=== PATIENT | male | born 1965 ===

== ENCOUNTER 2016-07-11 02:22 | Observation (INO) | payer SELFPAY ==
[2016-07-11 02:27] VITALS: BMI 25.1
[2016-07-11] MEDS ORDERED: Sodium Chloride 0.9% 1,000 ML IV STA (02:36)
--- NOTE | 2016-07-11 02:36 | ED PDOC ---
Arrival/HPI - General Chief Complaint: Alcohol Ingestion Time Seen by Provider: 07/11/16 02:23 Historian: Patient, EMS - History of Present Illness Narrative History of Present Illness (Text): 07/11/16 02:30 Jeff Lozano is a 51 year old male, whose past medical history includes perforated colon, who presents to the emergency department complaining of vomiting. Patient states he has been experiencing nausea with associated abdominal discomfort and few episodes of vomiting which he states was possibly blood-tinged. Patient admits to drinking a few beers tonight. The patient denies any fever, chills, chest pain, shortness of breath, diarrhea, urinary symptoms, back pain, neck pain, headache, dizziness, or any other complaints. Time/Duration: Other (tonight) Symptom Onset: Gradual Symptom Course: Unchanged Severity Level: Mild Activities at Onset: Light Past Medical History - Provider Review Nursing Documentation Reviewed: Yes - Infectious Disease Hx of Infectious Diseases: None - Cardiac Hx Hypertension: No - Pulmonary Hx Tuberculosis: No - Neurological Hx Seizures: No - Hematological/Oncological Hx Cancer: No - Gastrointestinal Hx Gastrointestinal Disorders: Yes (SEE BELOW) Other/Comment: PERFORATED COLON W/REVERSED COLOSTOMY (TRAUMATIC, PER PT ''GLASS PLACED INTO HIS FOOD WHILE IN [facility]'') - Genitourinary/Gynecological Hx Sexually Transmitted Diseases: No - Psychiatric Hx Post Traumatic Stress Disorder: Yes (DUE TO INCARCERATION(33YRS)) Hx Substance Use: No (Denied) - Surgical History Other/Comment: 2006=PERFORATED COLON W/REVERSED COLOSTOMY (TRAUMATIC, PER PT '' GLASS PLACED INTO HIS FOOD WHILE IN [facility]'') - Anesthesia Hx Anesthesia: Yes Hx Anesthesia Reactions: No Family/Social History - Physician Review Nursing Documentation Reviewed: Yes Family/Social History: No Known Family HX Smoking Status: Former Smoker Hx Alcohol Use: No Hx Substance Use: No (Denied) Allergies/Home Meds Allergies/Adverse Reactions: Allergies amitriptyline HCl [From Elavil] Allergy (Verified 03/28/16 22:51) RASH divalproex sodium [From Depakote] Allergy (Verified 03/28/16 22:51) VOMITING Home Medications: Home Meds Medication Instructions Recorded Confirmed Unobtainable 07/11/16 07/11/16 Review of Systems - Physician Review All systems were reviewed & negative as marked: Yes - Review of Systems Constitutional: Normal. absent: Fevers Eyes: Normal ENT: Normal Respiratory: Normal. absent: SOB, Cough Cardiovascular: Normal. absent: Chest Pain Gastrointestinal: Abdominal Pain, Nausea, Vomiting Genitourinary Male: Normal. absent: Dysuria, Frequency, Hematuria, Urinary Output Changes Musculoskeletal: Normal. absent: Back Pain, Neck Pain Skin: Normal. absent: Rash Neurological: Normal. absent: Headache, Dizziness Endocrine: Normal Hemo/Lymphatic: Normal Psychiatric: Other (+alcohol intoxication) Physical Exam Vital Signs Reviewed: Yes Vital Signs Temp Pulse Resp BP Pulse Ox 07/11/16 05:46 93 H 17 112/75 98 07/11/16 02:22 97.6 F 77 19 139/73 98 Temperature: Afebrile Blood Pressure: Normal Pulse: Regular Respiratory Rate: Normal Appearance: Positive for: Well-Appearing, Comfortable Pain Distress: None Mental Status: Positive for: Alert and Oriented X 3 - Systems Exam Head: Present: Atraumatic, Normocephalic Pupils: Present: PERRL Extroacular Muscles: Present: EOMI Conjunctiva: Present: Normal Mouth: Present: Moist Mucous Membranes Neck: Present: Normal Range of Motion Respiratory/Chest: Present: Clear to Auscultation, Good Air Exchange. No: Respiratory Distress, Accessory Muscle Use Cardiovascular: Present: Regular Rate and Rhythm, Normal S1, S2. No: Murmurs Abdomen: Present: Normal Bowel Sounds. No: Tenderness, Distention, Peritoneal Signs Back: Present: Normal Inspection Upper Extremity: Present: Normal Inspection. No: Cyanosis, Edema Lower Extremity: Present: Normal Inspection. No: Edema Neurological: Present: GCS=15, CN II-XII Intact, Speech Normal Skin: Present: Warm, Dry, Normal Color. No: Rashes Psychiatric: Present: Alert, Oriented x 3, Normal Insight, Normal Concentration Medical Decision Making ED Course and Treatment: 07/11/16 02:30 Impression: 51 year old male complaining of nausea, vomiting, and abdominal discomfort tonight. Plan: -- Labs, alcohol level, lipase -- IV fluids -- Zofran -- Pepcid -- Reassess and disposition Progress Notes: 07/11/16 05:40 Pt now complaining of chest discomfort. EKG, CXR, and cardiac enzymes. 07/11/16 06:12 Reviewed EKG, NSR at [address]-segment elevations or depressions, no T-wave inversions, normal intervals. 07/11/16 06:23 Case discussed with house physician, who is aware and accepts pt on hospitalist service. Pt will go to Telemetry observation for chest pain and hematemesis. 07/11/16 06:30 Reviewed radiology, CXR shows no acute process. - Lab Interpretations Lab Results: 07/11/16 03:00 07/11/16 03:00 Lab Results 07/11/16 03:00: WBC 10.2, RBC 4.03, Hgb 13.5 L, Hct 38.2 L, MCV 94.8, MCH 33.5, MCHC 35.3, RDW 13.5, Plt Count 266, MPV 8.8 07/11/16 03:00: Alcohol, Quantitative 12 H 07/11/16 03:00: Sodium 140, Potassium 3.5 L, Chloride 102, Carbon Dioxide 28, Anion Gap 14, BUN 18, Creatinine 0.7, Est GFR ( Amer) > 60, Est GFR (Non- Af Amer) > 60, Random Glucose 89, Calcium 9.0, Total Bilirubin 0.5, AST 34, ALT 36, Alkaline Phosphatase 68, Lactate Dehydrogenase 501, Total Creatine Kinase 222, Troponin I < 0.01, Total Protein 7.4, Albumin 4.1, Globulin 3.3, Albumin/ Globulin Ratio 1.2, Lipase 69 07/11/16 03:00: PT 11.3, INR 1.05, APTT 22.6 L 07/11/16 02:55: Urine Opiates Screen Negative, Urine Methadone Screen Negative, Ur Barbiturates Screen Negative, Ur Phencyclidine Scrn Negative, Ur Amphetamines Screen Negative, U Benzodiazepines Scrn Negative, U Oth Cocaine Metabols Negative, U Cannabinoids Screen Positive H I have reviewed the lab results: Yes - RAD Interpretation Radiology Orders: 07/11/16 05:48 CHEST PORTABLE [RAD] Stat Trolley Operator: ED Physician - EKG Interpretation Interpreted by ED Physician: Yes Type: 12 lead EKG - Medication Orders Current Medication Orders: Discontinued Medications Famotidine (Pepcid) 20 mg IVP STAT STA Stop: 07/11/16 02:37 Last Admin: 07/11/16 03:11 Dose: 20 mg Sodium Chloride (Sodium Chloride 0.9%) 1,000 mls @ 999 mls/hr IV .Q1H1M STA Stop: 07/11/16 03:36 Last Admin: 07/11/16 03:12 Dose: 999 mls/hr Ondansetron HCl (Zofran Inj) 4 mg IVP ONCE ONE Stop: 07/11/16 02:37 Last Admin: 07/11/16 03:12 Dose: 4 mg Pantoprazole Sodium (Protonix Inj) 40 mg IVP ONCE STA Stop: 07/11/16 06:20 - Scribe Statement The provider has reviewed the documentation as recorded by the Myrna White Provider Attestation: All medical record entries made by the Myrna were at my direction and personally dictated by me. I have reviewed the chart and agree that the record accurately reflects my personal performance of the history, physical exam, medical decision making, and the department course for this patient. I have also personally directed, reviewed, and agree with the discharge instructions and disposition. Disposition/Present on Arrival - Present on Arrival Any Indicators Present on Arrival: No History of DVT/PE: No History of Uncontrolled Diabetes: No Urinary Catheter: No History of Decub. Ulcer: No History Surgical Site Infection Following: None - Disposition Have Diagnosis and Disposition been Completed?: Yes Diagnosis: Chest pain, Hematemesis Disposition: HOSPITALIZED Disposition Time: 06:25 Patient Plan: Observation Patient Problems: Current Active Problems Problem Status Onset Chest pain Acute Hematemesis Acute Condition: STABLE Discharge Instructions (ExitCare): Chest Pain (ED)
[2016-07-11 02:56] VITALS: O2SAT 98
[2016-07-11 03:22] LABS: HEMATOCRIT 38.2 % (42.0-52.0); MEAN CELL VOLUME 94.8 fL (80.0-105.0); MEAN CORPUSCULAR HEMOGLOBIN 33.5 pg (25.0-35.0); MEAN CORPUSCULAR HGB CONC 35.3 g/dl (31.0-37.0); MEAN PLATELET VOLUME 8.8 fl (7.0-11.0); RED CELL DISTRIBUTION WIDTH 13.5 % (11.5-14.5); WHITE BLOOD COUNT 10.2 10^3/ul (4.5-11.0)
[2016-07-11 03:32] LABS: ALB/GLOB RATIO 1.2 (1.1-1.8); ALKALINE PHOSPHATASE 68 U/L (38-133); ALT/SGPT 36 U/L (7-56); AST/SGOT 34 U/L (15-59); BILIRUBIN,TOTAL 0.5 mg/dL (0.2-1.3); BLOOD UREA NITROGEN 18 mg/dL (7-21); CARBON DIOXIDE 28 mmol/L (21-33); CHLORIDE 102 mmol/L (98-107); GFR AFRICAN-AMERICAN > 60; GLUCOSE,RANDOM 89 mg/dL (70-110); LIPASE 69 U/L (23-300); POTASSIUM 3.5 mmol/L (3.6-5.0); SODIUM 140 mmol/L (132-148); TOTAL PROTEIN 7.4 g/dL (5.8-8.3)
[2016-07-11 03:34] LABS: INR 1.05 (0.93-1.08); PARTIAL THROMBOPLASTIN TIME 22.6 Seconds (23.7-30.8)
[2016-07-11 06:15] LABS: TROPONIN I < 0.01 ng/mL
--- NOTE | 2016-07-11 07:12 | RAD ---
HISTORY: pain COMPARISON: No prior. FINDINGS: LUNGS: No active pulmonary disease. PLEURA: No significant pleural effusion identified, no pneumothorax apparent. CARDIOVASCULAR: Normal. OSSEOUS STRUCTURES: No significant abnormalities. VISUALIZED UPPER ABDOMEN: Normal. OTHER FINDINGS: None. IMPRESSION: No active disease.
[2016-07-11 07:53] VITALS: BP 122/87; PULSE 86; RESP 15; TEMP 98.9
[2016-07-11] MEDS ORDERED: Sodium Chloride 0.9% 500 ML IV SCH (08:28)
--- NOTE | 2016-07-11 09:05 | CP.PCM.CON ---
History of Present Illness - History of Present Illness History of Present Illness: PGY4 GI Fellow Consult Note Patient is a 51yo male with PMHx significant for colonic perforation requiring partial colectomy with ostomy and eventual reversal who presented to the ED with nausea and vomiting. Currently, the patient is very agitated and is refusing examination or to provide any history. He is getting dressed and states he is leaving against medical advice right now. According to the ED noted, patient was brought in for nausea and vomiting. He claimed to have one episode of coffee ground emesis but this was unwitnessed and he has not had any further episodes since admission. No other history can be obtained at this time. PMHx: See above PSHx: Partial colectomy, ostomy formation and reversal FHx: Unknown Social: EtOH use, +cannabis on UDS Endo: Unknown Past Patient History - Infectious Disease Hx of Infectious Diseases: None - Past Social History Smoking Status: Former Smoker - CARDIAC Hx Hypertension: No - PULMONARY Hx Tuberculosis: No - NEUROLOGICAL Hx Seizures: No - HEMATOLOGICAL/ONCOLOGICAL Hx Cancer: No - GASTROINTESTINAL Hx Gastrointestinal Disorders: Yes (SEE BELOW) Other/Comment: PERFORATED COLON W/REVERSED COLOSTOMY (TRAUMATIC, PER PT ''GLASS PLACED INTO HIS FOOD WHILE IN [facility]'') - GENITOURINARY/GYNECOLOGICAL Hx Sexually Transmitted Disorders: No - PSYCHIATRIC Hx Post Traumatic Stress Disorder: Yes (DUE TO INCARCERATION(32YRS)) Hx Substance Use: No (Denied) - SURGICAL HISTORY Other/Comment: 2006=PERFORATED COLON W/REVERSED COLOSTOMY (TRAUMATIC, PER PT '' GLASS PLACED INTO HIS FOOD WHILE IN [facility]'') - ANESTHESIA Hx Anesthesia: Yes Hx Anesthesia Reactions: No Meds Allergies/Adverse Reactions: Allergies Allergy/AdvReac Type Severity Reaction Status Date / Time amitriptyline HCl Allergy RASH Verified 03/28/16 22:51 [From Elavil] divalproex sodium Allergy VOMITING Verified 03/28/16 22:51 [From Depakote] - Medications Medications: Current Medications Folic Acid (Folic Acid) 1 mg PO DAILY UNIQUE Potassium Chloride (Potassium Chloride 20 Meq/100 Ml) 20 meq in 100 mls @ 50 mls/hr IVPB ONCE ONE Stop: 07/11/16 10:28 Sodium Chloride (Sodium Chloride 0.9%) 500 mls @ 150 mls/hr IV .Q3H20M UNIQUE Ondansetron HCl (Zofran Inj) 4 mg IVP Q6 PRN PRN Reason: Nausea/Vomiting Pantoprazole Sodium (Protonix Inj) 40 mg IVP Q12 UNIQUE Thiamine HCl (Vitamin B1 Tab) 50 mg PO DAILY UNIQUE Physical Exam - Constitutional Appears: Combative, Agitated - Additional Findings Additional findings: Patient agitated, will not allow examination Results - Vital Signs Recent Vital Signs: Last Vital Signs Temp 98.9 F 07/11/16 07:52 Pulse 86 07/11/16 07:52 Resp 15 07/11/16 07:52 BP 122/87 07/11/16 07:52 Pulse Ox 98 07/11/16 07:52 - Labs Result Diagrams: 07/11/16 03:00 07/11/16 03:00 Assessment & Plan - Assessment and Plan (Free Text) Assessment: Patient is a 51yo male with PMHx significant for colonic perforation requiring partial colectomy with ostomy and eventual reversal who presented to the ED with nausea and vomiting. -Nausea, vomiting; subjective coffee ground emesis - unwitnessed -EtOH abuse and acute EtOH intoxication -Cannabis use Plan: -Patient stating he wishes to leave AMA; will not provide history and will not allow physical examination -Currently hemodynamically stable with no distress at this time -Protonix 40mg IV BIDAC as ordered -Antiemetics to prevent retching/vomiting as ordered -Liquid diet as tolerated -Repeat CBC at noon, monitor HGB -HCV Ab screening -Encourage EtOH cessation -If patient stays, consider NPO past MN, EGD in AM -Would benefit from screening colonoscopy, can be performed as outpatient if patient wishes to follow up - Date & Time Date: 07/11/16 Time: 09:01
--- NOTE | 2016-07-11 14:54 | CARD ---
APPROVED REPORT EKG Measurement Heart [id number] [id number] <Conclusion> Normal sinus rhythm Normal ECG
--- NOTE | 2016-07-11 14:54 | CARD ---
APPROVED REPORT EKG Measurement Heart [id number] <Conclusion> Normal sinus rhythm Normal ECG
--- NOTE | 2016-07-11 17:04 | CP.PCM.HP ---
<Ida Coffey - Last Filed: 07/11/16 17:11> History of Present Illness - History of Present Illness History of Present Illness: 57 yo M with PMHx of perforated colon and possible ETOH abuse, presents to ED with complaint of diffuse chest pain, L sided abdominal pain, and an episode of red emesis. Pt is a poor and agitated historian who did not give further detail despite questioning. As per ED report, pt ingested ETOH the night prior , after which, he has his episode of emesis. Pt denies tarry stools. PMHx: ETOH abuse Sx: related to perforated colon medications: denies taking any medications allergies: amitriptyline, divalproex social: 2 cigarettes a day for unknown amount of years. Denies ETOH currently. Present on Admission - Present on Admission Any Indicators Present on Admission: No Review of Systems - Review of Systems Systems not reviewed;Unavailable: Uncooperative Past Patient History - Infectious Disease Hx of Infectious Diseases: None - Past Social History Smoking Status: Former Smoker - CARDIAC Hx Hypertension: No - PULMONARY Hx Tuberculosis: No - NEUROLOGICAL Hx Seizures: No - HEMATOLOGICAL/ONCOLOGICAL Hx Cancer: No - GASTROINTESTINAL Hx Gastrointestinal Disorders: Yes (SEE BELOW) Other/Comment: PERFORATED COLON W/REVERSED COLOSTOMY (TRAUMATIC, PER PT ''GLASS PLACED INTO HIS FOOD [facility] [facility]'') - GENITOURINARY/GYNECOLOGICAL Hx Sexually Transmitted Disorders: No - PSYCHIATRIC Hx Post Traumatic Stress Disorder: Yes (DUE TO INCARCERATION(32YRS)) Hx Substance Use: No (Denied) - SURGICAL HISTORY Other/Comment: 2006=PERFORATED COLON W/REVERSED COLOSTOMY (TRAUMATIC, PER PT '' GLASS PLACED INTO HIS FOOD WHILE IN [facility]'') - ANESTHESIA Hx Anesthesia: Yes Hx Anesthesia Reactions: No Meds Allergies/Adverse Reactions: Allergies Allergy/AdvReac Type Severity Reaction Status Date / Time amitriptyline HCl Allergy RASH Verified 03/28/16 22:51 [From Elavil] divalproex sodium Allergy VOMITING Verified 03/28/16 22:51 [From Depakote] Physical Exam - Constitutional Appears: Agitated - Head Exam Head Exam: ATRAUMATIC, NORMOCEPHALIC - Eye Exam Eye Exam: EOMI, Normal appearance - Respiratory Exam Respiratory Exam: Clear to Auscultation Bilateral, NORMAL BREATHING PATTERN - Cardiovascular Exam Cardiovascular Exam: +S1, +S2. absent: Bradycardia - GI/Abdominal Exam GI & Abdominal Exam: Soft. absent: Tenderness - Exam External exam: absent: Erythema, Swelling - Extremities Exam Extremities exam: Negative for: pedal edema, tenderness - Neurological Exam Neurological exam: Alert, Normal Gait - Psychiatric Exam Psychiatric exam: Agitated, Anxious - Skin Skin Exam: Normal Color, Warm Results - Vital Signs Recent Vital Signs: Last Vital Signs Temp 98.9 F 07/11/16 07:52 Pulse 86 07/11/16 07:52 Resp 15 07/11/16 07:52 BP 122/87 07/11/16 07:52 Pulse Ox 98 07/11/16 07:52 - Labs Result Diagrams: 07/11/16 03:00 07/11/16 03:00 Assessment & Plan - Assessment and Plan (Free Text) Plan: 51 yo M presents with c/o of hematemesis, chest pain and L sided abdominal pain. Admits to ETOH usage night prior. In telemetry for chest pain and hematemesis: chest Pain: EKG shows NSR at [address] elevations/depressions or evidence of LBBB troponin 0.01, serial troponins ordered cardiac consult Hematemesis: intial hemoglobin 13.5 GI consult hemoglobin monitoring q6 CLD IV NS 125cc.hr zofran Possible ETOH abuse ETOH level 12 thiamine, folic acid, multivitamin CIWA protocol ativan prn PPx measures heparin, protonix <Bowen BRUNSON,Lazaro - Last Filed: 07/11/16 17:27> Results - Vital Signs Recent Vital Signs: Last Vital Signs Temp 98.9 F 07/11/16 07:52 Pulse 86 07/11/16 07:52 Resp 15 07/11/16 07:52 BP 122/87 07/11/16 07:52 Pulse Ox 98 07/11/16 07:52 - Labs Result Diagrams: 07/11/16 03:00 07/11/16 03:00 Attending/Attestation - Attestation I have personally seen and examined this patient.: Yes I have fully participated in the care of the patient.: Yes I have reviewed all pertinent clinical information: Yes Notes (Text): Patient was seen and examined with center medical and lab director .Agreed with resident assessment and plan. 51 yrs old male with PMH of alcohol and drug abuse is admitted with history of chest pain and questionable history of GI bleeding.EKG is normal, initial troponins are normal.We will admit patient in telemetry, will start on IV hydration, PPI and will get serial troponin..We will get GI and cardiology evaluation. We will also watch for alcohol withdrawal. Management plan was discussed in detail with patient Education was provided.
--- NOTE | 2016-07-11 17:15 | CP.PCM.DIS ---
<Ida Coffey - Last Filed: 07/11/16 17:16> Provider - Provider Date of Admission: 07/11/16 06:19 Attending physician: Olivia Wright MD Primary care physician: erma Consults: Dr. Brannon and Dr. Arce Time Spent in preparation of Discharge (in minutes): 25 Hospital Course - Lab Results Lab Results: Most Recent Lab Values WBC 10.2 10^3/ul (4.5-11.0) 07/11/16 03:00 RBC 4.03 10^6/uL (3.5-6.1) 07/11/16 03:00 Hgb 13.5 gm/dL (14.0-18.0) L 07/11/16 03:00 Hct 38.2 % (42.0-52.0) L 07/11/16 03:00 MCV 94.8 fL (80.0-105.0) 07/11/16 03:00 MCH 33.5 pg (25.0-35.0) 07/11/16 03:00 MCHC 35.3 g/dl (31.0-37.0) 07/11/16 03:00 RDW 13.5 % (11.5-14.5) 07/11/16 03:00 Plt Count 266 10^3/uL (120.0-450.0) 07/11/16 03:00 MPV 8.8 fl (7.0-11.0) 07/11/16 03:00 PT 11.3 Seconds (9.9-11.8) 07/11/16 03:00 INR 1.05 (0.93-1.08) 07/11/16 03:00 APTT 22.6 Seconds (23.7-30.8) L 07/11/16 03:00 Sodium 140 mmol/L (132-148) 07/11/16 03:00 Potassium 3.5 mmol/L (3.6-5.0) L 07/11/16 03:00 Chloride 102 mmol/L (98-107) 07/11/16 03:00 Carbon Dioxide 28 mmol/L (21-33) 07/11/16 03:00 Anion Gap 14 (10-20) 07/11/16 03:00 BUN 18 mg/dL (7-21) 07/11/16 03:00 Creatinine 0.7 mg/dL (0.5-1.4) 07/11/16 03:00 Est GFR ( Amer) > 60 07/11/16 03:00 Est GFR (Non-Af Amer) > 60 07/11/16 03:00 Random Glucose 89 mg/dL (70-110) 07/11/16 03:00 Calcium 9.0 mg/dL (8.4-10.5) 07/11/16 03:00 Total Bilirubin 0.5 mg/dL (0.2-1.3) 07/11/16 03:00 AST 34 U/L (15-59) 07/11/16 03:00 ALT 36 U/L (7-56) 07/11/16 03:00 Alkaline Phosphatase 68 U/L (38-133) 07/11/16 03:00 Lactate Dehydrogenase 501 U/L (333-699) 07/11/16 03:00 Total Creatine Kinase 222 U/L (35-230) 07/11/16 03:00 Troponin I < 0.01 ng/mL 07/11/16 03:00 Total Protein 7.4 g/dL (5.8-8.3) 07/11/16 03:00 Albumin 4.1 g/dL (3.0-4.8) 07/11/16 03:00 Globulin 3.3 gm/dL 07/11/16 03:00 Albumin/Globulin Ratio 1.2 (1.1-1.8) 07/11/16 03:00 Lipase 69 U/L (23-300) 07/11/16 03:00 Urine Opiates Screen Negative (NEGATIVE) 07/11/16 02:55 Urine Methadone Screen Negative (NEGATIVE) 07/11/16 02:55 Ur Barbiturates Screen Negative (NEGATIVE) 07/11/16 02:55 Ur Phencyclidine Scrn Negative (NEGATIVE) 07/11/16 02:55 Ur Amphetamines Screen Negative (NEGATIVE) 07/11/16 02:55 U Benzodiazepines Scrn Negative (NEGATIVE) 07/11/16 02:55 U Oth Cocaine Metabols Negative (NEGATIVE) 07/11/16 02:55 U Cannabinoids Screen Positive (NEGATIVE) H 07/11/16 02:55 Alcohol, Quantitative 12 mg/dL (0-10) H 07/11/16 03:00 - Hospital Course Hospital Course: 51 yo M presents with c/o of hematemesis, chest pain and L sided abdominal pain. Admits to ETOH usage night prior. Recieved bolus of NS, protonix, zofran in ED. EKG shows NSR at [address] elevations/depressions or evidence of LBBB, and initial troponin is negative. In telemetry for chest pain and hematemesis: Below was the proposed plan for care, but pt left AMA, despite being told the risks of leaving and benefits of staying: chest Pain: serial troponins ordered cardiac consult Hematemesis: intial hemoglobin 13.5 GI consult hemoglobin monitoring q6 CLD IV NS 125cc.hr zofran Possible ETOH abuse ETOH level 12 thiamine, folic acid, multivitamin CIWA protocol ativan prn PPx measures heparin, protonix Discharge Exam - Head Exam Head Exam: ATRAUMATIC, NORMOCEPHALIC - Additional Findings Additional findings: please refer to HPI Discharge Plan - Follow Up Plan Condition: UNKNOWN Disposition: AGAINST MEDICAL ADVICE Instructions: Chest Pain (DC), Chest Pain (GEN) <Bowen BRUNSON,[facility] - Last Filed: 07/11/16 17:30> Provider - Provider Date of Admission: 07/11/16 06:19 Attending physician: Olivia Wright MD Hospital Course - Lab Results Lab Results: Most Recent Lab Values WBC 10.2 10^3/ul (4.5-11.0) 07/11/16 03:00 RBC 4.03 10^6/uL (3.5-6.1) 07/11/16 03:00 Hgb 13.5 gm/dL (14.0-18.0) L 07/11/16 03:00 Hct 38.2 % (42.0-52.0) L 07/11/16 03:00 MCV 94.8 fL (80.0-105.0) 07/11/16 03:00 MCH 33.5 pg (25.0-35.0) 07/11/16 03:00 MCHC 35.3 g/dl (31.0-37.0) 07/11/16 03:00 RDW 13.5 % (11.5-14.5) 07/11/16 03:00 Plt Count 266 10^3/uL (120.0-450.0) 07/11/16 03:00 MPV 8.8 fl (7.0-11.0) 07/11/16 03:00 PT 11.3 Seconds (9.9-11.8) 07/11/16 03:00 INR 1.05 (0.93-1.08) 07/11/16 03:00 APTT 22.6 Seconds (23.7-30.8) L 07/11/16 03:00 Sodium 140 mmol/L (132-148) 07/11/16 03:00 Potassium 3.5 mmol/L (3.6-5.0) L 07/11/16 03:00 Chloride 102 mmol/L (98-107) 07/11/16 03:00 Carbon Dioxide 28 mmol/L (21-33) 07/11/16 03:00 Anion Gap 14 (10-20) 07/11/16 03:00 BUN 18 mg/dL (7-21) 07/11/16 03:00 Creatinine 0.7 mg/dL (0.5-1.4) 07/11/16 03:00 Est GFR ( Amer) > 60 07/11/16 03:00 Est GFR (Non-Af Amer) > 60 07/11/16 03:00 Random Glucose 89 mg/dL (70-110) 07/11/16 03:00 Calcium 9.0 mg/dL (8.4-10.5) 07/11/16 03:00 Total Bilirubin 0.5 mg/dL (0.2-1.3) 07/11/16 03:00 AST 34 U/L (15-59) 07/11/16 03:00 ALT 36 U/L (7-56) 07/11/16 03:00 Alkaline Phosphatase 68 U/L (38-133) 07/11/16 03:00 Lactate Dehydrogenase 501 U/L (333-699) 07/11/16 03:00 Total Creatine Kinase 222 U/L (35-230) 07/11/16 03:00 Troponin I < 0.01 ng/mL 07/11/16 03:00 Total Protein 7.4 g/dL (5.8-8.3) 07/11/16 03:00 Albumin 4.1 g/dL (3.0-4.8) 07/11/16 03:00 Globulin 3.3 gm/dL 07/11/16 03:00 Albumin/Globulin Ratio 1.2 (1.1-1.8) 07/11/16 03:00 Lipase 69 U/L (23-300) 07/11/16 03:00 Urine Opiates Screen Negative (NEGATIVE) 07/11/16 02:55 Urine Methadone Screen Negative (NEGATIVE) 07/11/16 02:55 Ur Barbiturates Screen Negative (NEGATIVE) 07/11/16 02:55 Ur Phencyclidine Scrn Negative (NEGATIVE) 07/11/16 02:55 Ur Amphetamines Screen Negative (NEGATIVE) 07/11/16 02:55 U Benzodiazepines Scrn Negative (NEGATIVE) 07/11/16 02:55 U Oth Cocaine Metabols Negative (NEGATIVE) 07/11/16 02:55 U Cannabinoids Screen Positive (NEGATIVE) H 07/11/16 02:55 Alcohol, Quantitative 12 mg/dL (0-10) H 07/11/16 03:00 Attending/Attestation - Attestation I have personally seen and examined this patient.: Yes I have fully participated in the care of the patient.: Yes I have reviewed all pertinent clinical information, including history, physical exam and plan: Yes Notes (Text): 07/11/16 17:28 51 yrs old male with history of alcohol and drug abuse was admitted with atypical chest pain and questionable hemetemsis, decided to leave hospital against medical advice.He was alert,awake and oriented and understood the risk of leaving the hospital against medical advise.The need of stay in the hospital was discussed in detail with him but he did not agree and left the hospital AMA.
== END 2016-07-11 09:50 | disposition left against medical advice (07) ==
LOC: ED 02:22 → ERH 06:19 → 2RNO 08:51
PROVIDERS: ADMIT Internal Medicine; ATTEND Internal Medicine
DX: K92.0 Hematemesis (principal); R07.89 Other chest pain; F10.129 Alcohol abuse with intoxication, unspecified; Y90.0 Blood alcohol level of less than 20 mg/100 ml; R10.9 Unspecified abdominal pain; F17.210 Nicotine dependence, cigarettes, uncomplicated; F12.10 Cannabis abuse, uncomplicated
CPT/HCPCS: 71010; 80053; 82550; 83615; 83690; 84484; 85027; 85610; 85730; 93005; 96361; 96374; 96375; 99285; C9113; G0378; G0480; J2405; J7040

== ENCOUNTER 2017-03-07 02:47 | Emergency (ER) | payer OTHER ==
[2017-03-07 02:47] VITALS: BMI 25.1
[2017-03-07 03:32] VITALS: TEMP 97.7
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
[2017-03-07 06:47] VITALS: BP 122/70; PULSE 72; RESP 12; O2SAT 100
== END 2017-03-07 07:25 | disposition home or self-care (01) ==
LOC: ED 02:47
DX: S22.42XA Multiple fractures of ribs, left side, initial encounter for closed fracture (principal); V03.90XA Pedestrian on foot injured in collision with car, pick-up truck or van, unspecified whether traffic or nontraffic accident, initial encounter; Y92.410 Unspecified street and highway as the place of occurrence of the external cause
CPT/HCPCS: 71101; 96372; 99283; J1885